=== PATIENT | female | born 1960 | race African-American/Black ===

== ENCOUNTER 2021-01-09 13:31 | Emergency (ER) | payer BC ==
[~2021-01-09] VITALS: Ht 170.2 cm; Wt 55.0 kg
[2021-01-09 13:51] VITALS: BP 145/94
[2021-01-09 14:48] LABS: BASOPHILS % 0.4 % (0.0-2.0); EOSINOPHILS % 1.2 % (0.0-5.0); HEMATOCRIT. 40.5 % (36.0-48.0); HEMOGLOBIN. 13.5 g/dL (12.0-16.0); LYMPHOCYTES % 17.4 % (20.0-50.0); MEAN CORPUSCULAR VOLUME 95.9 fL (81.0-99.0); MONOCYTES % 7.7 % (2.0-8.0); NEUTROPHILS % 73.3 % (40.0-76.0); PLATELET 228 x1000/uL (130-400); RED BLOOD CELL COUNT 4.22 mill/uL (4.2-5.4); RED CELL DISTRIBUTION WIDTH 14.5 % (11.6-14.6)
[2021-01-09 14:52] LABS: CHLORIDE 101 mEq/L (98-107)
== END 2021-01-09 15:56 | disposition home or self-care (01) ==
LOC: ER 14:02
DX: R00.2 Palpitations (principal); R07.9 Chest pain, unspecified; R00.0 Tachycardia, unspecified
CPT/HCPCS: 36415; 71045; 80053; 84443; 84484; 85025; 93005; 99285